=== PATIENT | male | born 2005 | race Two or more races ===

== ENCOUNTER 2025-03-27 23:08 | Emergency (ER) | payer MEDICAID, OTHER, SELFPAY ==
[2025-03-27 23:23] VITALS: BP 143/87; PULSE 108
== END 2025-03-28 00:03 ==
LOC: FB.ED 23:08
DX: T81.30XA Disruption of wound, unspecified, initial encounter (principal); S56.425A Laceration of extensor muscle, fascia and tendon of right ring finger at forearm level, initial encounter; F17.200 Nicotine dependence, unspecified, uncomplicated; W22.8XXA Striking against or struck by other objects, initial encounter
CPT/HCPCS: 99284